=== PATIENT | male | born 2000 | race Caucasian/White ===

== ENCOUNTER 2020-04-08 10:39 | Emergency (ER) | payer OTHER ==
[~2020-04-08] VITALS: Ht 167.6 cm; Wt 113.4 kg
[2020-04-08 10:45] VITALS: BP 136/100
--- NOTE | 2020-04-08 10:58 | NUR ---
19 Y/O MALE C/O RIGHT TIBIA PAIN S/P INJURY AT WORK ON MONDAY WHEN STEPPING OFF TRUCK. RIGHT TIBIA IS SWOLLEN WITH SUPERFICIAL LAC, NO ACTIVE DRAINAGE AT THIS TIME. PEDAL PULSES PRESENT BILAT. PT ABLE TO BARE MINIMAL WEIGHT ON RIGHT LEG. PAIN IS 8/10, SHARP, EXACERBATED DURING AMBULATION. PT IS AMBULATORY WITH SHUFFLED GAIT D/T PAIN.
[2020-04-08 11:57] VITALS: BP 136/100
--- NOTE | 2020-04-08 11:57 | NUR ---
Patient discharged with v/s stable. Written and verbal after care instructions given and explained. Patient alert, oriented and verbalized understanding of instructions. Ambulatory with steady gait. All questions addressed prior to discharge. ID band removed. Patient advised to follow up with PMD. Rx of naproxysn, cephalexin given. Patient educated on indication of medication including possible reaction and side effects. Opportunity to ask questions provided and answered.
== END 2020-04-08 11:57 | disposition home or self-care (01) ==
LOC: MED 10:39
DX: L03.115 Cellulitis of right lower limb (principal)
CPT/HCPCS: 73590; 90471; 90715; 99283; Q0092

== ENCOUNTER 2020-04-11 10:31 | Emergency (ER) | payer OTHER, MEDICAID ==
[~2020-04-11] VITALS: Ht 167.6 cm; Wt 113.4 kg
[2020-04-11 10:46] VITALS: BP 114/66
--- NOTE | 2020-04-11 11:00 | NUR ---
19/M SELF FOR FOLLOW UP ON RLE ABRASION ANTERIORLY, BELOW THE KNEE. C/O PAIN TO RIGHT LEG , REDNESS & SWELLING X 1 WEEK. SEEN HERE FOR CELLULITIS R LEG 3 DAYS AGO WAS RX NAPROXEN AND CEPHALEXIN. PT STATES THE SWELLING, REDNESS, AND PAIN HAS DECREASED SINCE LAST VISIT. HE WORKS IN [employer] SO IS CONCONCERNED ABOUT THE LEG. MED HX: DENIES
--- NOTE | 2020-04-11 12:25 | NUR ---
Patient discharged with v/s stable. Written and verbal after care instructions given and explained. Patient verbalized understanding. Ambulatory with steady gait. All questions addressed prior to discharge. Advised to follow up with PMD.
[2020-04-11 12:26] VITALS: BP 114/66
== END 2020-04-11 12:25 | disposition home or self-care (01) ==
LOC: MED 10:31
DX: L03.115 Cellulitis of right lower limb (principal); Z48.00 Encounter for change or removal of nonsurgical wound dressing
CPT/HCPCS: 99281

== ENCOUNTER 2020-04-12 18:27 | Emergency (ER) | payer OTHER, MEDICAID ==
[~2020-04-12] VITALS: Ht 167.6 cm; Wt 113.4 kg
[2020-04-12 18:35] VITALS: BP 139/78
--- NOTE | 2020-04-12 18:44 | NUR ---
PT AMB TO BED 4.
--- NOTE | 2020-04-12 18:52 | NUR ---
BIB SELF FOR WOUND CHECK. SEEN [facility] FOR RIGHT LOWER LEG CELLULITIS YESTERDAY & . PT AOR X4 , AFIBRILE , AMBULATORY WITH STEADY GAIT,C/O OF TINGLING SENSATION ON BOTH FOOT, PLUS 1 NON PITTING EDEMA RT ANKLE PAIN UPON TOUCHING 09/02. MED HX: DENIES
--- NOTE | 2020-04-12 19:00 | NUR ---
DR SHERMAN AT BEDSIDE EVALUATING PT.
--- NOTE | 2020-04-12 19:04 | NUR ---
DR SHERMAN AT BEDSIDE [facility].
[2020-04-12] MEDS ORDERED: NACL 0.9% 1,000 ML IV ONE (19:08)
[2020-04-12] MEDS ORDERED: CLINDAMYCIN 600 MG in DEXTROSE 5% 50 ML IV ONE (19:10)
[2020-04-12] MEDS ORDERED: LIDOCAINE/EPI 1% 1:100000 20 ML VIAL INJ ONE (19:10)
--- NOTE | 2020-04-12 19:10 | NUR ---
GAVE REPORT TO JARETH SUH WITH STABLE VS.PT IN BED SIDE RAIL UP X1 AND LOCK AT LOWEST LOCATION.
--- NOTE | 2020-04-12 19:15 | NUR ---
LAB AT BEDSIDE. LABS DRAWN AND COLLECTED.
--- NOTE | 2020-04-12 19:26 | NUR ---
US AT BEDSIDE.
[2020-04-12 19:35] LABS: BASOPHILS # (AUTO) 0.1 K/uL (0.00-0.22); BASOPHILS % (AUTO) 0.6 % (0.0-2.0); EOSINOPHILS # (AUTO) 0.3 K/uL (0-0.4); EOSINOPHILS % (AUTO) 2.9 % (0.0-4.0); HEMATOCRIT 43.9 % (36-52); HEMOGLOBIN 14.8 g/dL (12.0-18.0); LYMPHOCYTES # (AUTO) 2.2 K/uL (2.0-11.5); LYMPHOCYTES % (AUTO) 23.1 % (20.5-51.1); MEAN CORPUSCULAR HEMOGLOBIN 29 pg (27-31); MEAN CORPUSCULAR HGB CONC 34 g/dL (33-37); MEAN CORPUSCULAR VOLUME 84.9 fL (80-94); MONOCYTES # (AUTO) 0.8 K/uL (0.8-1.0); MONOCYTES % (AUTO) 8.1 % (1.7-9.3); NEUTROPHILS # (AUTO) 6.2 K/uL (1.8-7.7); NEUTROPHILS % (AUTO) 65.3 % (42.2-75.2); PLATELET COUNT (AUTO) 295 K/uL (140-450); RED BLOOD CELL COUNT(AUTO) 5.17 MIL/uL (4.20-6.10); RED CELL DISTRIBUTION WIDTH 14.5 % (11.6-13.7); WHITE BLOOD COUNT (AUTO) 9.5 K/uL (4.8-10.8)
[2020-04-12] MEDS ORDERED: CLINDAMYCIN 600 MG/4 ML VIAL ONE (19:50)
[2020-04-12 19:57] LABS: ALBUMIN 3.6 g/dL (3.4-5.0); ANION GAP 15.8 (8-16); POTASSIUM 3.8 mmol/L (3.5-5.1); TOTAL BILIRUBIN 0.4 mg/dL (0.0-1.0)
--- NOTE | 2020-04-12 20:49 | NUR ---
pts leg wound was wrapped in a non adherent gauze and a roll gauze. pts [facility] [place] [facility].
--- NOTE | 2020-04-12 20:53 | NUR ---
IV removed, catheter intact and site benign. Applied folded 4x4 gauze and tape to stop bleeding.
[2020-04-12 20:55] VITALS: BP 133/88
--- NOTE | 2020-04-12 20:55 | NUR ---
Patient discharged with v/s stable. Written and verbal after care instructions given and explained. Patient alert, oriented and verbalized understanding of instructions. Ambulatory with steady gait. All questions addressed prior to discharge. ID band removed. Patient advised to follow up with PMD. Rx of NAPROSYN, BACTRIM given. Patient educated on indication of medication including possible reaction and side effects. Opportunity to ask questions provided and answered.
== END 2020-04-12 20:55 | disposition home or self-care (01) ==
LOC: MED 18:27
DX: L02.415 Cutaneous abscess of right lower limb (principal)
CPT/HCPCS: 10060; 36415; 80053; 83605; 85025; 87040; 93971; 96365; 99284; J2001; J3490; Q0092; J7030

== ENCOUNTER 2020-04-14 08:51 | Emergency (ER) | payer OTHER, MEDICAID ==
[~2020-04-14] VITALS: Ht 170.2 cm; Wt 117.9 kg
--- NOTE | 2020-04-14 08:57 | NUR ---
AMBULATED TO BED 7
[2020-04-14 09:03] VITALS: BP 121/71
--- NOTE | 2020-04-14 09:08 | NUR ---
19 y/o male from home presents to ED for recheck on abscess drain to right neff. Pt denies pain at this time. Denies fever/chills. Awake and alert, positioned for comfort. VSS medhx: denies
--- NOTE | 2020-04-14 09:18 | NUR ---
Dr Weaver at bedside examining pt
[2020-04-14 09:27] VITALS: BP 121/71
--- NOTE | 2020-04-14 09:28 | NUR ---
Patient discharged with v/s stable. Written and verbal after care instructions given and explained. Patient verbalized understanding. Ambulatory with steady gait. All questions addressed prior to discharge. Advised to follow up with PMD. Bandaid placed to ascess site after cleaning of wound.
== END 2020-04-14 09:28 | disposition home or self-care (01) ==
LOC: MED 08:51
DX: L02.415 Cutaneous abscess of right lower limb (principal)
CPT/HCPCS: 99282

== ENCOUNTER 2020-04-19 10:49 | Emergency (ER) | payer OTHER, MEDICAID ==
[~2020-04-19] VITALS: Ht 162.6 cm; Wt 116.6 kg
[2020-04-19 10:53] VITALS: BP 140/84
--- NOTE | 2020-04-19 10:56 | NUR ---
Pt ambulated to bed 11 with steady gait.
--- NOTE | 2020-04-19 11:01 | NUR ---
19 Y/O MALE PRESENTS WITH PACKING TO HIS RIGHT [place] THAT HES SCHEDULED TO HAVE REMOVED TODAY. WOUND WAS PACKED ON THE AND PATIENT STATES THAT HE HAS BEEN CHANGING THE DRESSING DAILY. NO ACTIVE BLEEDING AND MILD AMOUNTS OF DRAINAGE NOTED. MILD REDNESS AND SWELLING AROUND AREA. PATIENT DENIES ANY PAIN.
--- NOTE | 2020-04-19 11:26 | NUR ---
Drainage site clean and dressed with gauze.
[2020-04-19 11:27] VITALS: BP 140/84
== END 2020-04-19 11:27 | disposition home or self-care (01) ==
LOC: MED 10:49
DX: L02.415 Cutaneous abscess of right lower limb (principal); Z48.00 Encounter for change or removal of nonsurgical wound dressing
CPT/HCPCS: 99281